=== PATIENT | male | born 1995 | race Caucasian/White ===

== ENCOUNTER 2017-03-20 10:43 | Inpatient (IN) | payer OTHER ==
[~2017-03-20] VITALS: Ht 175.3 cm; Wt 63.5 kg
[~2017-03-20 10:43] MED LIST: ATIVAN1 M1 PO
--- NOTE | 2017-03-20 10:46 | ED GENERAL ADULT ---
History of Present Illness General Chief Complaint: Seizure Stated Complaint: BIBA FOR SEIZURE Source: patient, family, old records, EMS Exam Limitations: poor historian Vital Signs & Intake/Output Vital Signs & Intake/Output Vital Signs Date Time Temp Pulse Resp B/P B/P Pulse O2 O2 Flow FiO2 Mean Ox Delivery Rate 03/20 1241 96.8 77 20 100/61 96 Room Air 03/20 1045 97.2 134 20 106/74 96 Room Air Allergies Coded Allergies: NO KNOWN ALLERGIES (08/27/11) Reconcile Medications Doxepin HCl 50 MG CAPSULE 1 CAP PO QPM UNSURE (Reported) Triage Nurses Notes Reviewed? yes Onset: Just prior to arrival Duration: minute(s): (3-5) Timing: recent history Injury Environment: IOP Severity: moderate No Modifying Factors: none HPI: Patient is a 21-year-old male with history of opiate, benzo, crack abuse presenting to the emergency Department chief complaint of seizure at this morning. According to family and patient patient was recently in inpatient detox of all substances, was admitted for 5 days and discharged 2 days ago. Today he was at his outpatient IOP intake evaluation and had a witnessed grand mal seizure. Patient denies using any drugs from time of discharge 2 days ago to today. Patient reports that he was using those drugs for approximately 3-4 years. He was using about 4 mg of Xanax daily prior to admission to detox facility. Patient fell anxious prior to onset of seizure, does not remember if he felt lightheaded or dizzy. Patient reports that he feels fatigued and slightly anxious at this time. No visual changes. Denies abdominal pain nausea or vomiting. Denies any suicidal or homicidal ideation. Patient reports that he does use alcohol but it's intermittently and not a daily occurrence. Mom reports that he had a seizure that she witnessed at 5:30 this morning that lasted a few minutes as well. He usually only has isolated seizures in the past and this is the first day he had 2 IN A ROW. Denies any urinary incontinence or retention. No urinary frequency or urgency or dysuria. Past History Travel History Traveled to [place] past 21 day No Medical History Any Pertinent Medical History? see below for history Psychiatric: substance abuse Surgical History Surgical History: non-contributory Psychosocial History What is your primary language Colombian Family History Hx Contributory? No Review of Systems Review of Systems Constitutional: Reports: malaise. Comments Review of systems: See HPI, All other systems negative. Constitutional, no chills fever or weight loss HEENT: No visual changes no sore throat no congestion Cardiovascular: No chest pain , orthopnea or ankle swelling Skin, no jaundice no rashes Respiratory: No dyspnea cough sputum or hemoptysis GI: No nausea no vomiting : No dysuria No hematuria Muscle skeletal: no back pain, no neck pain, Neurologic: No numbness no headaches Psych: Positive increased anxiety Heme/endocrine: No bruising no bleeding no polyuria or polydipsia Immunology: No splenectomy or history of AIDS Physical Exam Physical Exam General Appearance: well developed/nourished, no apparent distress, alert, awake , comfortable Comments: Well-developed well-nourished person in no acute distress HEENT: Normal EENT exam, extraocular motion intact, no nystagmus. Pupils equally round and reactive to light and accommodation. Nose is atraumatic. External auditory canal and Tympanic membranes clear. Pharynx normal. No swelling or edema. Neck: Supple, no lymphadenopathy, normal range of motion without pain or tenderness Back: Nontender Cardiovascular: Tachycardic rate and rhythms no murmurs rubs or gallops, normal JVP Respiratory: Chest nontender. No respiratory distress.breath sounds clear to auscultation bilaterally Abdomen: Soft, nontender nondistended, no appreciable organomegaly. Normal bowel sounds. No ascites Extremity: No edema, no calf tenderness to palpation, normal and equal pulses. Neuro: Alert oriented x3, motor sensory normal, cranial nerves II through XII grossly intact. Cerebellar testing is unremarkable. Skin: No appreciable rash on exposed skin, skin is warm and slightly diaphoretic. Patient does have several track ernst and old scars on the upper extremities bilaterally, specifically on the forearm and antecubital fossa area. No areas of erythema or fluctuance or tenderness. Psych: Mood and affect is normal, memory and judgment is normal. Core Measures ACS in differential dx? No CVA/TIA Diagnosis: No Severe Sepsis Present: No Septic Shock Present: No Progress Differential Diagnoses I considered the following diagnoses in my evaluation of the patient: Benzo withdrawal, polysubstance abuse, polysubstance withdrawal seizure, seizure disorder, dehydration, electrolyte abnormality, medication noncompliance, failed outpatient treatment Plan of Care: Orders Procedure Date/time Status Nothing by Mouth 03/20 D Active Pathway - chart 03/20 1251 Active House Staff 03/20 1251 Active Patient Data 03/20 1251 Active Code Status 03/20 1251 Active Misc Message 03/20 1250 Active ED Holding Orders 03/20 1250 Active Vital Signs 03/20 1250 Active Code Status 03/20 1250 Complete Patient Data 03/20 1239 Active Admit to inpatient 03/20 1238 Active Intake & Output 03/20 1054 Active MISTAKE 03/20 1046 Active Telemetry/Welfare Visitor 03/20 1045 Active URINE DRUG SCREEN FOR ER ONLY 03/20 1045 Complete PROLACTIN 03/20 1045 Complete ETHANOL 03/20 1045 Complete COMPREHENSIVE METABOLIC PANEL 03/20 1045 Complete CBC WITHOUT DIFFERENTIAL 03/20 1045 Complete EKG 03/20 1045 Active VTE Mechanical Prophylaxis 03/20 UNK Active Current Medications Sig/Lisa Start time Last Medication Dose Stop Time Status Admin Acetaminophen 325 MG Q6 PRN 03/20 1300 UNVr (Tylenol) Oxycodone HCl 5 MG Q6 PRN 03/20 1300 UNVr (Roxicodone) Oxycodone/ 2 TAB Q6 PRN 03/20 1300 UNVr Acetaminophen (Percocet) Enoxaparin Sodium 40 MG DAILY 03/20 1250 UNVr (Lovenox) Sodium Chloride 1,000 ML BOLUS ONE 03/20 1230 AC 03/20 (Normal Saline 0.9%) 03/20 1329 1243 Laboratory Tests 03/20/17 1120: Urine Opiates Screen 558.00, Methadone Screen 318 H, Barbiturate Screen < 60, Ur Phencyclidine Scrn < 6.00, Amphetamines Screen < 100, U Benzodiazepines Scrn < 85, Urine Cocaine Screen 102, Urine Cannabis Screen 5.30 03/20/17 1115: Anion Gap 15, Estimated GFR > 60, BUN/Creatinine Ratio 31.4 H, Glucose 107 H, Calcium 10.1, Total Bilirubin 0.3, AST 26, ALT 40, Alkaline Phosphatase 65, Total Protein 8.1, Albumin 5.0, Globulin 3.1, Albumin/Globulin Ratio 1.6, Prolactin 5.8, CBC w Diff NO MAN DIFF REQ, RBC 5.64, MCV 78.3 L, MCH 25.5 L, RDW 12.8, MPV 7.7, Gran % 81.1 H, Lymphocytes % 16.4 L, Monocytes % 2.1, Eosinophils % 0.2, Basophils % 0.2, Absolute Granulocytes 8.5 H, Absolute Lymphocytes 1.7, Absolute Monocytes 0.2, Absolute Eosinophils 0, Absolute Basophils 0, PUBS MCHC 32.5 L, Serum Alcohol < 10.0 Initial ED EKG: SINUS TACHYCARDIA AT 120 BPM Comments: On arrival patient is alert and oriented, tachycardic and slightly diaphoretic. We will monitor patient on telemetry at this time until heart rate returns to normal rate. IV established. We will assess CBC, CMP, urine drug screen, EtOH. Patient reports he has not used anything over the past couple days since being discharged from inpatient detox. This is likely related to benzo withdrawal. Patient has had seizures in the past. There is no head injury at time of seizure. Patient medicated with IV hydration heart rate seems to be normalizing. Currently on the monitor it is 102. Patient will be admitted to Gen. medicine per hospitalists were benzo withdrawal and seizure. He will need a slow Ativan taper. D/W DR PATEL AND HE AGREES WITH PLAN. Departure Departure Time of Disposition: 1234 Disposition: STILL A PATIENT Condition: Stable Clinical Impression Primary Impression: Benzodiazepine withdrawal Qualifiers: Complication of substance-induced condition: with unspecified complication Qualified Code: F13.239 - Sedative, hypnotic or anxiolytic dependence with withdrawal, unspecified Secondary Impressions: Seizure Referrals: ZANE SMALL MD (PCP/Family) Departure Forms: Customer Survey General Discharge Information Admission Note Spoke With: RAINE ANTHONY,SANTOS Documentation of Exam: Documentation of any treatments & extenuating circumstances including Concerns Regarding Discharge (functional status, medication knowledge or non-compliance, living conditions, etc.) that warrant an admission rather than observation: Patient requiring slow taper of benzodiazepines to avoid seizure withdrawals, IV hydration, medication management, poor outpatient candidate as patient is not reliable, failed previous inpatient detox over 5 day course, patient may require longer taper. Discharge at this time would be medically harmful. Critical Care Note Critical Care Note Critical Care Time: non-applicable
[2017-03-20] MEDS ORDERED: DOXEPIN HCL50 MG PO (10:57)
[2017-03-20 11:20] LABS: ABSOLUTE BASOPHIL COUNT 0 /CUMM (0.0-0.2); ABSOLUTE EOSINOPHIL COUNT 0 /CUMM (0.0-0.7); ABSOLUTE GRANULOCYTE CT 8.5 /CUMM (1.4-6.5); ABSOLUTE LYMPH COUNT 1.7 /CUMM (1.2-3.4); ABSOLUTE MONOCYTE COUNT 0.2 /CUMM (0.10-0.60); BASOPHIL % 0.2 % (0.0-2.0); EOSINOPHIL % 0.2 % (0-5); GRANULOCYTE % 81.1 % (42.2-75.2); HEMATOCRIT 44.1 % (42-52); MEAN CORPUSCULAR HGB 25.5 PG (27.0-31.0); MEAN CORPUSCULAR HGB CONC 32.5 G/DL (33.0-37.0); MEAN CORPUSCULAR VOLUME 78.3 FL (80.0-94.0); MEAN PLATELET VOLUME 7.7 FL (7.4-10.4); PLATELET COUNT 353 /CUMM (130-400); RBC DISTRIBUTION WIDTH 12.8 % (11.5-14.5); RED BLOOD CELL CT 5.64 /CUMM (4.70-6.10); WHITE BLOOD CELL COUNT 10.4 /CUMM (4.8-10.8)
--- NOTE | 2017-03-20 13:28 | History & Physical ---
JAYDEISABELLEORACIO 03/20/17 1318: General Information and [facility] MD Statement: I have seen and personally examined TALIA BEVERLY and documented this H&P. The patient is a 21 year old M who presented with a patient stated chief complaint of [seizure]. Source of Information: patient, family Exam Limitations: no limitations History of Present Illness: Patient is a 21-year-old male with history of polysubstance abuse(cocaine, Xanax , heroine), withdrawal seizures, intermittent alcohol use, anxiety who was brought to ED for an episode of seizure this morning. Patient reports that he recently underwent inpatient detox at [facility] (-03/18). He underwent a rapid taper with Ativan (1 mg) for 4 days and was discharged home with doxepin to help with sleep. Mother reports that he had no Ativan at discharge. This morning at around 5:30 AM the patient had an episode of witnessed tonic-clonic seizure. He was rolled up in his bed with the pillow against his face and was jerking violently. The whole episode lasted for 2 minutes and was witnessed by his mother. He had postictal confusion for about 20 minutes and admits to LOC for a few seconds. Denies any chest pain, shortness of breath, nausea, vomiting, bowel and bladder dysfunction, biting of tongue. After the episode his mom gave him gabapentin(he had pills remaining from her previous detox in [place]). He was then taken to [facility] for [facility] program intake. There he had another episode of tonic-clonic seizure lasting about 2 minutes which was witnessed by the staff at [facility]. The EMS called and the patient was sent to ER for evaluation. Mother reports that the patient has been clean since last Thursday. They feel that the taper was too short and that led to withdrawal seizures. He is cocaine, Xanax, and heroine user with track dickey all over his hands. Denies any other medical history other than anxiety. Has been tested negative for HIV and hepatitis in the past. Smokes about 1 pack per day for the last 5 years. In the ED vitals were stable except tachycardia at 134 bpm. Labs were benign and prolactin was 5.8 U tox positive for methadone EKG showed sinus tachycardia with a heart rate of 1 40 bpm, some LVH and QTC of [address] was negative for any acute pathology. Patient received 2 L fluid boluses and 1 mg IV Ativan in the ED. Allergies/Medications Allergies: Coded Allergies: NO KNOWN ALLERGIES (08/27/11) Past History Travel History Traveled to [place] past 21 day No Medical History Psychiatric: substance abuse Isolation History: Standard Surgical History Surgical History: non-contributory Past Family/Social History Psychosocial History ETOH Use: occasional use Illicit Drug Use: cocaine, heroin, benzodiazepines Review of Systems Review of Systems Constitutional: Reports: malaise, weakness. EENTM: Reports: no symptoms. Cardiovascular: Reports: no symptoms. Respiratory: Reports: no symptoms. GI: Reports: no symptoms. Genitourinary: Reports: no symptoms. Musculoskeletal: Reports: no symptoms. Skin: Reports: no symptoms. Neurological/Psychological: Reports: no symptoms. Exam & Diagnostic Data Last 24 Hrs of Vital Signs/I&O Vital Signs Date Time Temp Pulse Resp B/P B/P Pulse O2 O2 Flow FiO2 Mean Ox Delivery Rate 03/20 1241 96.8 77 20 100/61 96 Room Air 03/20 1045 97.2 134 20 106/74 96 Room Air Intake & Output 03/20 1600 03/20 0800 03/20 0000 Intake Total 2000 Output Total Balance 2000 Intake, IV 2000 Patient 59.874 kg Weight Weight Reported by Patient Measurement Method Physical Exam General Appearance Alert, Oriented X3, Cooperative, No Acute Distress Skin TRACK DICKEY ON THE DORSAL SURFACE OF HANDS Skin Temp/Moisture Exam: Warm/Dry Sepsis Skin Exam (color): Normal for Ethnicity HEENT Atraumatic, PERRLA, EOMI Neck Supple, No JVD Lymphatic Cervical nl Cardiovascular Normal S1, Normal S2, TACHYCARDIA Lungs Clear to Auscultation, Normal Air Movement Abdomen Normal Bowel Sounds, Soft, No Tenderness Neurological Normal Speech, Strength at 5/5 X4 Ext, Normal Tone, Sensation Intact, Cranial Nerves 3-12 NL, Reflexes 2+ Extremities No Clubbing, No Cyanosis, No Edema Last 24 Hrs of Labs/Joe: Laboratory Tests 03/20/17 1120: Urine Opiates Screen 558.00, Methadone Screen 318 H, Barbiturate Screen < 60, Ur Phencyclidine Scrn < 6.00, Amphetamines Screen < 100, U Benzodiazepines Scrn < 85, Urine Cocaine Screen 102, Urine Cannabis Screen 5.30 03/20/17 1115: Anion Gap 15, Estimated GFR > 60, BUN/Creatinine Ratio 31.4 H, Glucose 107 H, Calcium 10.1, Total Bilirubin 0.3, AST 26, ALT 40, Alkaline Phosphatase 65, Total Protein 8.1, Albumin 5.0, Globulin 3.1, Albumin/Globulin Ratio 1.6, Prolactin 5.8, CBC w Diff NO MAN DIFF REQ, RBC 5.64, MCV 78.3 L, MCH 25.5 L, RDW 12.8, MPV 7.7, Gran % 81.1 H, Lymphocytes % 16.4 L, Monocytes % 2.1, Eosinophils % 0.2, Basophils % 0.2, Absolute Granulocytes 8.5 H, Absolute Lymphocytes 1.7, Absolute Monocytes 0.2, Absolute Eosinophils 0, Absolute Basophils 0, PUBS MCHC 32.5 L, Serum Alcohol < 10.0 Assessment/Plan Assessment: Patient is a 21-year-old male with history of polysubstance abuse(cocaine, Xanax , heroine), withdrawal seizures, intermittent alcohol use, anxiety who was brought to ED for an episode of seizure this morning. In the ED vitals were stable except tachycardia at 134 bpm. Labs were benign and prolactin was 5.8 U tox positive for methadone EKG showed sinus tachycardia with a heart rate of 1 40 bpm, some LVH and QTC of [address] was negative for any acute pathology. Patient received 2 L fluid boluses and 1 mg IV Ativan in the ED. Assessment * Benzo withdrawal seizure * Polysubstance abuse (cocaine, heroine, Xanax) * IV drug abuser with track dickey on hands * Anxiety * Tachycardia * Recent detox at [facility](03/15-03/18) Plan * Admit patient to [facility] * Every 4 neuro checks * Seizure precautions * Aspiration precautions * Continue IV Ativan 1 mg scheduled every 6 hours and 1 mg PO when necessary as needed * Received 2 L IV fluids in the ED. No further fluids needed at this time. * No neurologic evaluation/EEG at this point since his seizures are from drug withdrawal * We will order troponin level * Psychiatric consult for anxiety and detox * Mild pain pathway * Regular diet * Full code As Ranked By This Provider Problem List: 1. Seizure 2. Benzodiazepine withdrawal Qualifiers Complication of substance-induced condition: with unspecified complication Qualified Code: F13.239 - Sedative, hypnotic or anxiolytic dependence with withdrawal, unspecified 3. Polysubstance abuse Core Measures/Miscellaneous Acute Coronary Syndrome ACS Diagnosis: No Cerebrovascular Accident CVA/TIA Diagnosis: No Congestive Heart Failure CHF Diagnosis: No VTE (View Protocol) VTE Risk Factors: No Risk Factors No [facility] VTE prophylaxis d/t: No contraindications No VTE Pharm Prophylaxis d/t: No contraindications VTE Diagnosis: No VTE Type: NONE VTE Confirmed by (Test): NONE Sepsis (View Protocol) Severe Sepsis Present: No Septic Shock Septic Shock Present: No Miscellaneous Documentation Attending Case Discussed With: SANTOS NI MD Primary Care Physician: ZANE SMALL MD Patient sees these Specialists NONE Level of Patient Care: General Medicine JOSH ARRIOLA MD 03/20/17 1526: General Information and HPI Allergies/Medications Home Med list Doxepin HCl 50 MG CAPSULE 1 CAP PO QPM UNSURE (Reported) Lorazepam (Ativan) 1 MG TABLET 1 TAB PO SEE ADMIN CRITERIA Withdrawal 03/22 1mg once 03/23 1mg twice a day 03/24 1mg once Melatonin 5 MG TABLET 5 MG PO AT BEDTIME PRN INSOMNIA Attending MD Review Statement Attending Statement Attending MD Statement: examined this patient, discuss w/resident/PA/DOBBY LOOM FIXER, agreed w/resident/PA/DOBBY LOOM FIXER, discussed with family, reviewed EMR data (avail), discussed with nursing, discussed with case mgmt, amended to note Attending Assessment/Plan: 21-year-old male with past medical history significant for polysubstance abuse( cocaine, Xanax, heroine), withdrawal seizures, intermittent alcohol use, anxiety who was sent in an ambulance from [facility] after having a seizure. Patient with his polysubstance use history had been to [facility] in [facility] for a quick detox. His last use of drugs was a week ago and then he was admitted to this clinic detox facility. He finished the detox 2 days ago. According to his mother he does have a history of seizure number fevers ago which was also related to drugs. This morning around 520, mother noticed some unusual noises coming from his room and when she went in to see him he was having active seizure. Later on he became confused. This is typical for his seizures according to his mother. Patient had an intake appointment today at [facility] and when he showed up, he ended up with another seizure. Patient was sent to the emergency room. Right now he is feeling somewhat tired and hungry. No further seizures in the emergency room. He was started on Ativan. Vital Signs Date Time Temp Pulse Resp B/P B/P Pulse O2 O2 Flow FiO2 Mean Ox Delivery Rate 03/20 1407 98.4 85 20 130/70 95 Room Air 03/20 1241 96.8 77 20 100/61 96 Room Air 03/20 1045 97.2 134 20 106/74 96 Room Air on exam; aox3, nad. cv; s1,s2, rrr resp; clear abd; soft, nt, bs+ ext; no edema. Laboratory Tests 03/20 03/20 1120 1115 Chemistry Sodium (137 - 145 mmol/L) 140 Potassium (3.5 - 5.1 mmol/L) 4.7 Chloride (98 - 107 mmol/L) 102 Carbon Dioxide (22 - 30 mmol/L) 23 Anion Gap (5 - 16) 15 BUN (9 - 20 mg/dL) 22 H Creatinine (0.7 - 1.2 mg/dL) 0.7 Estimated GFR (>60 ml/min) > 60 BUN/Creatinine Ratio (7 - 25 %) 31.4 H Glucose (65 - 99 mg/dL) 107 H Calcium (8.4 - 10.2 mg/dL) 10.1 Total Bilirubin (0.2 - 1.3 mg/dL) 0.3 AST (17 - 59 U/L) 26 ALT (21 - 72 U/L) 40 Alkaline Phosphatase (< 127 U/L) 65 Troponin I (<0.11 ng/ml) < 0.01 Total Protein (6.3 - 8.2 g/dL) 8.1 Albumin (3.5 - 5.0 g/dL) 5.0 Globulin (1.9 - 4.2 gm/dL) 3.1 Albumin/Globulin Ratio (1.1 - 2.2 %) 1.6 Prolactin (3.7 - 17.9 ng/mL) 5.8 Hematology CBC w Diff NO MAN DIFF REQ WBC (4.8 - 10.8 /CUMM) 10.4 RBC (4.70 - 6.10 /CUMM) 5.64 Hgb (14.0 - 18.0 G/DL) 14.4 Hct (42 - 52 %) 44.1 MCV (80.0 - 94.0 FL) 78.3 L MCH (27.0 - 31.0 PG) 25.5 L RDW (11.5 - 14.5 %) 12.8 Plt Count (130 - 400 /CUMM) 353 MPV (7.4 - 10.4 FL) 7.7 Gran % (42.2 - 75.2 %) 81.1 H Lymphocytes % (20.5 - 51.1 %) 16.4 L Monocytes % (1.7 - 9.3 %) 2.1 Eosinophils % (0 - 5 %) 0.2 Basophils % (0.0 - 2.0 %) 0.2 Absolute Granulocytes (1.4 - 6.5 /CUMM) 8.5 H Absolute Lymphocytes (1.2 - 3.4 /CUMM) 1.7 Absolute Monocytes (0.10 - 0.60 /CUMM) 0.2 Absolute Eosinophils (0.0 - 0.7 /CUMM) 0 Absolute Basophils (0.0 - 0.2 /CUMM) 0 PUBS MCHC (33.0 - 37.0 G/DL) 32.5 L Toxicology Urine Opiates Screen (>2000 NG/ML) 558.00 Methadone Screen (>300 NG/ML) 318 H Barbiturate Screen (>200 NG/ML) < 60 Ur Phencyclidine Scrn (>25 NG/ML) < 6.00 Amphetamines Screen (>1000 NG/ML) < 100 U Benzodiazepines Scrn (>200 NG/ML) < 85 Urine Cocaine Screen (>300 NG/ML) 102 Urine Cannabis Screen (>50 NG/ML) 5.30 Serum Alcohol (<10 MG/DL) < 10.0 ekg>> sinus tach. A/P; 21-year-old male with past medical history significant for polysubstance abuse(cocaine, Xanax, heroine), withdrawal seizures, intermittent alcohol use, anxiety, admitted to medicine floor with benzo withdrawal seizure. Patient will be started on scheduled and when necessary benzodiazepine per [facility] protocol. Psychiatry consult will be obtained. Patient will be hydrated with IV fluids. DVT px: Lovenox. Full code.
[2017-03-20 14:07] VITALS: BP 130/70
--- NOTE | 2017-03-20 16:26 | Cons- Psychiatry ---
Psychiatric Consult Date of Consult: 03/20/17 Reason for Consult: "Anxiety, benzo withdrawal seizures" Ordered by Dr. Barbie Pulido attending History of Present Illness: Identifying Info: 21-year-old single male presents to [facility] emergency department on 03/30/2017 with chief complaint of withdrawal seizure from benzodiazepine use. Admitted to medicine. CC: "used since I was 14" HPI: Unable to obtain full HPI due to patient's somnolence, patient had received Ativan 40 minutes prior to interview. Per the H&P: "History of polysubstance abuse(cocaine, Xanax, heroine), withdrawal seizures, intermittent alcohol use, anxiety who was brought to ED for an episode of seizure this morning. Patient reports that he recently underwent inpatient detox at [facility] (-03/18). He underwent a rapid taper with Ativan (1 mg) for 4 days and was discharged home with doxepin to help with sleep. Mother reports that he had no Ativan at discharge. This morning at around 5:30 AM the patient had an episode of witnessed tonic-clonic seizure. He was rolled up in his bed with the pillow against his face and was jerking violently. The whole episode lasted for 2 minutes and was witnessed by his mother. He had postictal confusion for about 20 minutes and admits to LOC for a few seconds. After the episode his mom gave him gabapentin(he had pills remaining from her previous detox in [place]). He was then taken to [facility] for IOP program intake. There he had another episode of tonic-clonic seizure lasting about 2 minutes which was witnessed by the staff at [facility]." Per report the patient has not used since last Thursday. On interview patient is unable to quantify how much Xanax he had been using prior to detox. PMH: Please see the H&P for a complete listing Past Psych History: Unable to obtain. Family Psych History: Unable to obtain. Substance History Sedative hypnotic use disorder Opiate use disorder Cocaine use disorder -Treatment Recent detox at [facility] Previous inpatient rehabilitation in [place] Family Substance History: Unable to obtain. Social: Unable to obtain. Abuse/Trauma: Unable to obtain. Current Home Psychotropic Medications: None were reported at intake however review of med claim history reveals the following: Quetiapine 300 mg daily at bedtime Sertraline 100 mg daily Hydroxyzine 50 mg 3 times a day when necessary anxiety BuSpar 20 mg 3 times a day Doxepin 100 mg daily at bedtime Gabapentin 600 mg 3 times a day It is unclear what medications if any the patient was currently taking Current Hospital Psychotropic Medications: Med Lorazepam 1 MG PO Q6 03/20/17 1357 Lorazepam 1 MG PO Q1 NEEDED PRN 03/20/17 1400 Allergies: Coded Allergies: NO KNOWN ALLERGIES (08/27/11) Current Medications: Current Medications Sig/Lisa Start time Last Medication Dose Route Stop Time Status Admin Acetaminophen 325 MG Q6P PRN 03/20 1300 AC PO Enoxaparin Sodium 0 .STK-MED ONE 03/20 1313 DC SC Enoxaparin Sodium 40 MG DAILY 03/20 1250 AC 03/20 SC 1313 Lorazepam 1 MG Q1 NEEDED PRN 03/20 1400 AC PO Lorazepam 1 MG Q6 03/20 1357 AC 03/20 PO 1433 Lorazepam 0 .STK-MED ONE 03/20 1244 DC .ROUTE Lorazepam 1 MG ONCE ONE 03/20 1230 DC / IV 03/20 1231 1243 Oxycodone HCl 5 MG Q6P PRN 03/20 1300 DC PO Oxycodone/ 2 TAB Q6P PRN 03/20 1300 DC Acetaminophen PO Sodium Chloride 1,000 ML BOLUS ONE 03/20 1230 DC / IV 03/20 1329 1243 Sodium Chloride 1,000 ML BOLUS ONE 03/20 1200 DC / IV 03/20 1259 1203 Past History Past Medical History Neurological: seizure EENT: NONE Cardiovascular: NONE Respiratory: NONE Gastrointestinal: NONE Hepatic: NONE Renal: NONE Musculoskeletal: NONE Psychiatric: substance abuse Endocrine: NONE Blood Disorders: NONE Cancer(s): NONE CRISIS THERAPIST/Reproductive: NONE Past Surgical History Surgical History: non-contributory Psychosocial History Strengths/Capabilities: Supportive mother Physical Limitations (Interventions): Current substance withdrawl Psychiatric Treatment History Psych Treatment Psychiatric Treatment Yes Diagnosis: Sedative hypnotic use disorder Opiate use disorder Cocaine use disorder Risk Factors: age (under 24/over 65), SA/MH hospitalized, substance abuse, male Substance Use/Abuse History Drug Use/Abuse Substances Used/Abused Yes Substance Abuse Treatment Substance Abuse Treatment Past Substance Abuse [place] Yes Assessment/Plan Mental Status Mental Status Exam: Mental Status Exam Presentation/Appearance: Unable to participate in evaluation in meaningful way, only able to say a few words prior to falling asleep. Hospital garb, lying in bed. Orientation: Oriented to self and situation. Sensorium: Somnolent/sedated Eye contact: Poor Affect: Flat Mood: No complaints Depression: Unable to assess Anxiety: Unable to assess Thought Content: - Denies SI/HI, AH/VH, PI. Thought Process: Linear Associations: Appropriate Speech: Minimal, soft Judgment: Unable to assess fully Insight: Patient appears to understand the need for treatment at this time Cognition: Memory: Unable to assess Attention/Concentration: Poor Fund of Knowledge: Unable to assess Abstractions:Unable to assess MMSE: Unable to assess Lab Results: Laboratory Tests 03/20/17 1120: Urine Opiates Screen 558.00, Methadone Screen 318 H, Barbiturate Screen < 60, Ur Phencyclidine Scrn < 6.00, Amphetamines Screen < 100, U Benzodiazepines Scrn < 85, Urine Cocaine Screen 102, Urine Cannabis Screen 5.30 03/20/17 1115: Anion Gap 15, Estimated GFR > 60, BUN/Creatinine Ratio 31.4 H, Glucose 107 H, Calcium 10.1, Total Bilirubin 0.3, AST 26, ALT 40, Alkaline Phosphatase 65, Troponin I < 0.01, Total Protein 8.1, Albumin 5.0, Globulin 3.1, Albumin/ Globulin Ratio 1.6, Prolactin 5.8, CBC w Diff NO MAN DIFF REQ, RBC 5.64, MCV 78.3 L, MCH 25.5 L, RDW 12.8, MPV 7.7, Gran % 81.1 H, Lymphocytes % 16.4 L, Monocytes % 2.1, Eosinophils % 0.2, Basophils % 0.2, Absolute Granulocytes 8.5 H, Absolute Lymphocytes 1.7, Absolute Monocytes 0.2, Absolute Eosinophils 0, Absolute Basophils 0, PUBS MCHC 32.5 L, Serum Alcohol < 10.0 Diffential Diagnosis: Sedative hypnotic use disorder Opiate use disorder Cocaine use disorder Impression: 21-year-old single male presents with multiple seizures and context of polysubstance withdrawal. Most likely attributable to benzodiazepine withdrawal and rapid taper he received at [facility]. The patient would benefit from continued monitoring medication to prevent further seizure. Provisional Treatment Plan: 1. Continue Ativan as currently ordered and medicate PRN based on physiologic signs of withdrawl. Hold for sedation respiratory depression. Reduce frequency as tolerated with plan to try to minimize the amount of benzodiazepines the patient can safely receive. 2. We will obtain collateral information from patient's mother and attempt to interview patient again to gain full history and full psychiatric interview. 3. Appreciate social work consult for disposition planning. Likely plan to return to [facility] if patient has already engaged in treatment there. 4. Hold other psychotropics at this time as it is unclear what the patient had been taking if any. Thank you for including psychiatry in this case we'll continue to follow. A total of 40 minutes was spent with the patient with more than 50% of the time spent in counseling and/or coordination of care.
[2017-03-20 18:24] VITALS: BP 110/56
[2017-03-20 22:41] VITALS: BP 120/60
[2017-03-21 07:09] VITALS: BP 106/66
--- NOTE | 2017-03-21 08:29 | PN- Housestaff ---
CHARLA ANTHONY,[facility] 03/21/17 0829: Subjective Follow-up For: Benzo withdrawal seizure Polysubstance abuse (cocaine, heroine, Xanax) Subjective: Agent was seen and examined this morning, vital signs are stable, lying comfortably in bed, denied any withdrawal symptoms including seizure attacks. UA was obtained today that showed weakly positive for leukocyte esterase, negative nitrates and WBC 15-25, denied any dysuria, hematuria, abdominal pain, fever or chills. Review of Systems Constitutional: Reports: see HPI. Objective Last 24 Hrs of Vital Signs/I&O Vital Signs Date Time Temp Pulse Resp B/P B/P Pulse O2 O2 Flow FiO2 Mean Ox Delivery Rate 03/21 0709 97.5 94 20 106/66 97 Room Air 03/20 2241 98.1 105 20 120/60 97 Room Air 03/20 1824 98.4 99 20 110/56 97 Room Air 03/20 1407 98.4 85 20 130/70 95 Room Air 03/20 1241 96.8 77 20 100/61 96 Room Air 03/20 1045 97.2 134 20 106/74 96 Room Air Intake & Output 03/21 1600 03/21 0800 03/21 0000 Intake Total 800 Output Total Balance 800 Intake, Oral 800 Physical Exam General Appearance: Alert, Oriented X3, Cooperative, No Acute Distress Skin: No Rashes, No Breakdown, No Significant Lesion Skin Temp/Moisture Exam: Warm/Dry HEENT: Atraumatic, PERRLA, EOMI, Mucous Membr. moist/pink Neck: Supple, No JVD Cardiovascular: Regular Rate, Normal S1, Normal S2, No Murmurs Lungs: Clear to Auscultation, Normal Air Movement Abdomen: Normal Bowel Sounds, Soft, No Tenderness, No Hepatospenomegaly, No Masses Neurological: Normal Gait, Normal Speech, Strength at 5/5 X4 Ext, Normal Tone, Sensation Intact, Cranial Nerves 3-12 NL, Reflexes 2+ Extremities: No Clubbing, No Cyanosis, No Edema, Normal Pulses, No Tenderness/ Swelling Assessment/Plan Assessment: Patient is a 21-year-old male with history of polysubstance abuse(cocaine, Xanax , heroine), withdrawal seizures, intermittent alcohol use, anxiety who was brought to ED for an episode of seizure this morning. In the ED vitals were stable except tachycardia at 134 bpm. Labs were benign and prolactin was 5.8 U tox positive for methadone EKG showed sinus tachycardia with a heart rate of 1 40 bpm, some LVH and QTC of [address] was negative for any acute pathology. Patient received 2 L fluid boluses and 1 mg IV Ativan in the ED. Assessment * Benzo withdrawal seizure * Polysubstance abuse (cocaine, heroine, Xanax) * IV drug abuser with track ernst on hands * Anxiety * Tachycardia * Recent detox at [facility](03/15-03/18) Plan * Continue IV Ativan 1 mg scheduled every 6 hours and 1 mg PO when necessary as needed per CIWA score * Troponin EKG negative * Every 4 neuro checks * Seizure precautions * Aspiration precautions * Psychiatric consultation was obtained, thanks for recommendation * Mild pain pathway * Regular diet * Full code Problem List: 1. Polysubstance abuse 2. Benzodiazepine withdrawal 3. Seizure Pain Ratin Pain Location: None Pain Goal: Pain 4 or less Pain Plan: mild pain pathway Tomorrow's Labs & Rationales: None MARVIN ULRICH MD 03/21/17 1539: Attending MD Review Statement Attending Statement Attending MD Statement: examined this patient, discuss w/resident/PA/CASH SPECIALIST, agreed w/resident/PA/CASH SPECIALIST, reviewed EMR data (avail) Attending Assessment/Plan: Patient doing well. Continue current management.
[2017-03-21 13:54] VITALS: BP 130/80
[2017-03-21 17:55] VITALS: BP 120/68
[2017-03-21 18:00] VITALS: BP 120/68
[2017-03-21 22:00] VITALS: BP 122/60
[2017-03-21 22:06] VITALS: BP 122/60
[2017-03-22 02:00] VITALS: BP 100/50
[2017-03-22 02:23] VITALS: BP 100/50
[2017-03-22 06:00] VITALS: BP 90/60
[2017-03-22 06:28] VITALS: BP 90/60
--- NOTE | 2017-03-22 08:15 | PN- Housestaff ---
HOA ANTHONY,RONNIE 03/22/17 0815: Subjective Follow-up For: Benzo withdrawal seizure Polysubstance abuse (cocaine, heroine, Xanax) Subjective: Patient seen and examined this morning. He says his seizure was from a lack of sleep the previous night and he would like to go home today because he feels well at his baseline. Max CIWA score was 4 last night, staying at 0-1 since then. Denies any anxiety, headache, diaphoresis, abdominal pain, n/v, chest discomfort or dyspnea. Review of Systems Constitutional: Reports: see HPI. Objective Last 24 Hrs of Vital Signs/I&O Vital Signs Date Time Temp Pulse Resp B/P B/P Pulse O2 O2 Flow FiO2 Mean Ox Delivery Rate 03/22 0628 98.0 95 20 90/60 97 Room Air 03/22 0600 98.0 95 20 90/60 03/22 0223 98.2 68 20 100/50 96 Room Air 03/22 0200 98.2 68 20 100/50 03/21 2206 98.5 84 20 122/60 98 Room Air 03/21 2200 98.5 84 20 122/60 10 1800 98.7 90 20 120/68 03/21 1755 98.7 90 20 120/68 98 Room Air 03/21 1354 98.1 95 20 130/80 97 Room Air Intake & Output 03/22 1600 03/22 0800 03/22 0000 Intake Total 50 650 Output Total Balance 50 650 Intake, IV 0 Intake, Oral 50 650 Number 0 Bowel Movements Physical Exam General Appearance: Alert, Cooperative, No Acute Distress Other Physical Findings: Skin: No Rashes, No Breakdown, No Significant Lesion Skin Temp/Moisture Exam: Warm/Dry HEENT: Atraumatic, PERRLA, EOMI, Mucous Membr. moist/pink Neck: Supple, No JVD Cardiovascular: Regular Rate, Normal S1, Normal S2, No Murmurs Lungs: Clear to Auscultation, Normal Air Movement Abdomen: Normal Bowel Sounds, Soft, No Tenderness, No Hepatospenomegaly, No Masses Neurological: Normal Gait, Normal Speech, Strength at 5/5 X4 Ext, Normal Tone, Sensation Intact, Cranial Nerves 3-12 NL, Reflexes 2+ Extremities: No Clubbing, No Cyanosis, No Edema, Normal Pulses, No Tenderness/ Swelling Current Medications: Current Medications Sig/Lisa Start time Last Medication Dose Route Stop Time Status Admin Acetaminophen 325 MG Q6P PRN 03/20 1300 AC PO Enoxaparin Sodium 40 MG DAILY 03/20 1250 AC 03/22 SC 0815 Lorazepam 1 MG Q6H 03/20 2030 AC 03/22 PO 0815 Lorazepam 1 MG Q1 NEEDED PRN 03/20 1400 AC 03/20 PO 2109 Melatonin 5 MG AT BEDTIME PRN 03/21 0030 AC 03/21 PO 2137 Assessment/Plan Assessment: Patient is a 21-year-old male with history of polysubstance abuse(cocaine, Xanax , heroine), withdrawal seizures, intermittent alcohol use, anxiety who was brought to ED for an episode of seizure this morning. Head CT was negative for any acute pathology. Patient received 2 L fluid boluses and 1 mg IV Ativan in the ED. Assessment * Benzo withdrawal seizure * Polysubstance abuse (cocaine, heroine, Xanax) * IV drug abuser with track ernst on hands * Anxiety * Tachycardia * Recent detox at [facility](03/15-03/18) Plan * Taper Ativan 1mg Q6H PO to 1mg Q8H PO * PRN IV Ativan 1mg Q1H per CIWA protocol * Every 4 neuro checks * Seizure precautions * Aspiration precautions * Psychiatric following, appreciate recs * Mild pain pathway * Regular diet * Full code Problem List: 1. Polysubstance abuse 2. Benzodiazepine withdrawal 3. Seizure Pain Ratin Pain Location: 0 Pain Goal: Remain pain free Pain Plan: 0 Tomorrow's Labs & Rationales: None MARVIN ULRICH MD 03/22/17 1112: Attending MD Review Statement Attending Statement Attending MD Statement: examined this patient, discuss w/resident/PA/JOB ESTIMATOR, agreed w/resident/PA/JOB ESTIMATOR, reviewed EMR data (avail) Attending Assessment/Plan: Patient appears well. No evidence of withdrawal symptoms at this time. Hemodynamically stable, no tremor or tongue fasciculations, patient is calm and cooperative with no signs of agitation or anxiety. CIWA scores have been zero. No PRN Ativan was required. Patient is stable for discharge home. Will give short course of PO Ativan taper and he can follow up with his PCP.
[2017-03-22] MEDS ORDERED: ATIVAN1 M1 PO (10:23)
--- NOTE | 2017-03-22 10:25 | Patient Discharge Instructions ---
Discharge Instructions General Discharge Information You were seen/treated for: Benzo withdrawal Special Instructions: Please follow up with your primary care provider within 1 week of discharge. Referral to [place] psychiatric service is provided below if you would like to see a psychiatrist. Acute Coronary Syndrome Inclusion Criteria At DC or during hospital stay patient has or had the following: ACS DIAGNOSIS No Discharge Core Measures Meds if any: Prescribed or Continued at Discharge Meds if any: NOT Prescribed or Continued at Discharge Congestive Heart Failure Inclusion Criteria At DC or during hospital stay patient has or had the following: CHF DIAGNOSIS No Discharge Core Measures Meds if any: Prescribed or Continued at Discharge Meds if any: NOT Prescribed or Continued at Discharge Cerebrovascular accident Inclusion Criteria At DC or during hospital stay patient has or had the following: CVA/TIA Diagnosis No Discharge Core Measures Meds if any: Prescribed or Continued at Discharge Meds if any: NOT Prescribed or Continued at Discharge Venous thromboembolism Inclusion Criteria VTE Diagnosis No VTE Type NONE VTE Confirmed by (Test) NONE Discharge Core Measures - Per Current guidelines, there needs to be overlap - treatment for the first 5 days of Warfarin therapy. - If discharged on Warfarin prior to 5 days of - overlap therapy, the patient will need to be - assessed for post discharge needs including - *Post discharge parental anticoagulation - *Warfarin and/or parental anticoagulation education - *Follow up date to check INR post discharge At least 5 days overlap therapy as Inpatient No Meds if any: Prescribed or Continued at Discharge Note: Overlap Therapy is Warfarin and Anticoagulant Meds if any: NOT Prescribed or Continued at Discharge
[2017-03-22] MEDS ORDERED: MELATONIN5 M7 PO (10:26)
--- NOTE | 2017-03-22 18:45 | Discharge Summary ---
Visit Information Visit Dates Admission Date: 03/20/17 Discharge Date: 03/22/17 Hospital Course Course Attending Physician: SANTOS NI MD Primary Care Physician: ZANE SMALL MD Consulting Request: Consulting Specialty: Psychiatry Consulting Physician: El Heredia APRN Reason for Consult: Benzo and IV drug abuse Hospital Course: Mr. Westbrook is a 21 year old male with H polysubstance abuse (cocaine, xanax, heroin), withdrawl seizures, intermittent alcohol use and anxiety who presented to the [facility] on 03/20/17 after an episode of seizure. Carter recently underwent inpatient detoxification at [facility] (03/15-03/18) and was given a rapid taper with Ativan (1 mg) for 4 days with subsequent discharged home with doxepin for sleep. The morning of admission around 5:30 AM, Carter had an episode of witnessed tonic-clonic seizure. In the ED: Vital signs showed T 97.2, HR 134, RR 20, BP 106/74 and O2 saturation 96% on room air. Labs showed unremarkable CBC and BEP with slightly elevated BUN to 22. Glu 107. Troponin <0.01. Urine toxicology showed 558 opiates and 318 methadone. Physical exam on admission showed: General Appearance Alert, Oriented X3, Cooperative, No Acute Distress Skin Track ernst on the doral surface of hands bilaterally Skin Temp/Moisture Exam: Warm/Dry Sepsis Skin Exam (color): Normal for Ethnicity HEENT Atraumatic, PERRLA, EOMI Neck Supple, No JVD Lymphatic Cervical nl Cardiovascular Normal S1, Normal S2, tachycardic Lungs Clear to Auscultation, Normal Air Movement Abdomen Normal Bowel Sounds, Soft, No Tenderness Neurological Normal Speech, Strength at 5/5 X4 Ext, Normal Tone, Sensation Intact, Cranial Nerves 3-12 NL, Reflexes 2+ Extremities No Clubbing, No Cyanosis, No Edema Patient was admitted to the general medicine floor and the following was the management: 1. Benzo withdrawl seizure: Patient was admitted to the general medicine floor and neuro checks were done every 4 hours. He was placed on both seizure and aspiration precautions. He was placed on 1 mg IV ativan scheduled every 6 hours as well as PRN ativan 1 mg PO when needed for withdrawl symptoms. This was held for any sedation respiratory depression. Psychiatric consult and social work consults were obtained. Patient tolerated this well with appropriate ativan taper implemented. Patient was stable for discharge on 03/22/17 and given a short course of ativan for a taper as an outpatient. Patient should follow up with his PCP within 7 days of discharge and consider follow up at [facility] and resources provided prior to discharge. 2. Anxiety: Ativan for withdrawl concomitantly helped with baseline anxiety. Patient required no other medication for this as an inpatient and was directed to follow up with [facility] as an outpatient to closely monitor this along with to provide continued care for substance abuse. 3. Tachycardia: Likely related to withdrawl. Troponin and EKG on admission were negative for acute coronary syndrome. His heart rate subsequently returned to normal after receiving 2 L normal saline boluses and scheduled ativan for withdrawl. Nedtent should follow up with PCP who can monitor this as an outpatient. 4. Code: FULL 5. DVT Prophylaxis: SC lovenox 6. Diet: Regular Complications: None. Allergies: Coded Allergies: NO KNOWN ALLERGIES (08/27/11) Disposition Summary Disposition Principal Diagnosis: Benzo withdrawl seizure Polysubstance abuse Additional Diagnosis: IV drug abuser Anxiety Tachycardia Discharge Disposition: home or self care Discharge Instructions General Discharge Information Code Status: Full Code Patient's Diet: Regular diet Patient's Activity: Self-limited, as tolerated. Follow-Up Instructions/Appts: Please follow up with your primary care provider within 1 week of discharge. Referral to [facility] psychiatric service is provided below if you would like to see a psychiatrist. Medications at Discharge Discharge Medications: Continue taking these medications: Doxepin HCl (Doxepin HCl) 50 MG CAPSULE 1 Capsule ORAL Every night Qty = 28 Comments: NOT GIVEN Start taking the following new medications: Melatonin (Melatonin) 5 MG TABLET 5 Milligram ORAL AT BEDTIME as needed for INSOMNIA Qty = 30 No Refills Comments: Last Taken: 03/21/17 Time: 10 PM Lorazepam (Ativan) 1 MG TABLET 1 Tablet ORAL SEE INSTRUCTIONS Qty = 4 No Refills Instructions: 03/22 1mg once 03/23 1mg twice a day 03/24 1mg once Comments: Last Taken: 03/22/17 Time: 8:30 AM Copies To: GEOVANNY ANTHONY,ZANE Gracia MD Review Statement Documenting Attending: JOSH ARRIOLA MD Other Findings: Discharging physician is Dr. Dickerson.
== END 2017-03-22 12:57 | DRG 101 ==
LOC: ERH 10:43 → ERHI 12:38 → 2NA 12:38 → ENRESERV 13:04 → ENTRNSPT 13:15 → EDTRNSPTSTS 13:20 → CMPTRNSPT 13:20 → 2NA 13:23 → ENPENDDIS 03-22 10:42 → 2NA 03-22 12:57
PROVIDERS: Physician Assistant; ADMIT Internal Medicine
DX: G40.89 Other seizures (principal); F13.239 Sedative, hypnotic or anxiolytic dependence with withdrawal, unspecified; F14.23 Cocaine dependence with withdrawal; F17.200 Nicotine dependence, unspecified, uncomplicated; F41.9 Anxiety disorder, unspecified; R00.0 Tachycardia, unspecified
CPT/HCPCS: 2NASP; 80307; 81001; 82436; 93005; 93010; 96360; G0480; J1650